=== PATIENT | male | born 1980 | race African-American/Black ===

== ENCOUNTER 2017-11-29 00:35 | Emergency (ER) | payer SELFPAY ==
[~2017-11-29] VITALS: Ht 195.6 cm; Wt 84.0 kg
[2017-11-29] MEDS ORDERED: LIDOCAINE HCL/PF 1% 10 MG/ML 5ML VIAL IJ SCH (02:44)
[2017-11-29] MEDS ORDERED: BACITRACIN ZINC OINT UDPKT TOP ONE (02:45)
[2017-11-29] MEDS ORDERED: TETANUS, DIPHTHERIA, PERTUSSIS VAC/PF 0.5ML (>7YR OLD) IM ONE (02:45)
[2017-11-29] MEDS ORDERED: LIDOCAINE HCL 1% 20ML VIAL (Pyxis) INJ MC ONE (02:45)
[2017-11-29] MEDS ORDERED: ACETAMINOPHEN 325MG TABLET PO ONE (02:45)
[2017-11-29 04:02] LABS: BASOPHILS % 0.5 % (0.0-2.0); EOSINOPHILS % 2.8 % (0.0-5.0); HEMATOCRIT. 38.6 % (42.0-52.0); HEMOGLOBIN. 13.2 g/dL (14.0-18.0); MEAN CORPUSCULAR HEMOGLOBIN 32.7 pg (28.0-32.0); MEAN CORPUSCULAR VOLUME 95.6 fL (80.0-94.0); MONOCYTES % 7.9 % (2.0-8.0); NEUTROPHILS % 53.8 % (40.0-76.0); PLATELET 217 x1000/uL (130-400); RED BLOOD CELL COUNT 4.03 mill/uL (4.7-6.1); RED CELL DISTRIBUTION WIDTH 13.7 % (11.6-14.6)
[2017-11-29 04:09] LABS: CHLORIDE 113 mEq/L (98-107)
[2017-11-29 04:12] LABS: ETHANOL BLOOD 271 mg/dL
[2017-11-29 06:10] VITALS: BP 141/80
== END 2017-11-29 06:11 | disposition home or self-care (01) ==
LOC: ER 00:36
DX: S02.69XA Fracture of mandible of other specified site, initial encounter for closed fracture (principal); S01.81XA Laceration without foreign body of other part of head, initial encounter; Y04.2XXA Assault by strike against or bumped into by another person, initial encounter; Y93.89 Activity, other specified; Y92.89 Other specified places as the place of occurrence of the external cause; R03.0 Elevated blood-pressure reading, without diagnosis of hypertension
CPT/HCPCS: 12011; 36415; 70450; 70486; 72125; 80053; 85025; 90471; 90715; 99285; G0482; J3490

== ENCOUNTER 2017-12-17 17:04 | Emergency (ER) | payer SELFPAY ==
[~2017-12-17] VITALS: Ht 185.4 cm; Wt 84.0 kg
[2017-12-17 17:41] VITALS: BP 125/87
== END 2017-12-17 18:06 | disposition home or self-care (01) ==
LOC: ER 17:04
DX: Z48.02 Encounter for removal of sutures (principal)
CPT/HCPCS: 99281; Z7610